=== PATIENT | female | born 1970 | race Caucasian/White ===

== ENCOUNTER 2018-07-05 11:52 | Emergency (ER) | payer MEDICARE ==
[2018-07-05] MEDS ORDERED: Sodium Chloride 0.9% 10 ML Syringe FLUSH PRN (12:09)
[2018-07-05] MEDS ORDERED: diphenhydrAMINE 50 MG/ML SDV IVPUSH ONE (12:10)
[2018-07-05] MEDS ORDERED: methylPREDNISolone Sodium Succinate 125 MG/2 ML SDV IVPUSH ONE (12:10)
[2018-07-05] MEDS ORDERED: Famotidine 20 MG/2 ML SDV IVPUSH ONE (12:10)
--- NOTE | 2018-07-05 15:18 | EDM.PDOC ---
ED HPI GENERAL MEDICAL PROBLEM - General Chief Complaint: Allergic Reaction Stated Complaint: THROAT/FACIAL SWELLING Time Seen by Provider: 07/05/18 12:09 Source of Information: Reports: Patient, Family History Limitations: Reports: No Limitations - History of Present Illness INITIAL COMMENTS - FREE TEXT/NARRATIVE: The patient presents with itching in her throat and around her neck. She also has swelling of her face and neck. She keeps clearing her throat when I examined her. This has been an ongoing problem for about 2 years. She has been to multiple doctors and recently in March a step down nurse. He ran many tests and she was allergic to ragweed and things like that but she also had antibodies to her thyroid cells. Her TSH and thyroxine have been okay. She is to see 1 more doctor and if they cannot figure it out then she will go to [facility]. She was on zyrtec daily and that has been increased to 2 times per day. She does not know what the trigger may have been today. She did not eat anything different and has not been around anything that may have triggered it. It is harvest season and there is lots of dust and [place]. This may contribute. I am not sure. She feels a little short of breath. She has no rash other then some scratches to her neck. Onset: Gradual Duration: Hour(s): Location: Reports: Face, Neck Quality: Reports: Other (Itching) Severity: Moderate Improves with: Reports: None Worsens with: Reports: None Associated Symptoms: Reports: Shortness of Breath. Denies: Cough, Fever/Chills , Headaches, Nausea/Vomiting - Related Data Allergies Allergy/AdvReac Type Severity Reaction Status Date / Time doxycycline Allergy Itching Verified 07/05/18 12:25 Home Meds: Home Meds ALPRAZolam [Alprazolam] 0.25 mg PO DAILY 07/05/18 [History] Lisinopril/Hydrochlorothiazide [Lisinopril-HCTZ 10-12.5 MG] 1 tab PO DAILY 07/05 [History] Sertraline [Zoloft] 100 mg PO 1500 07/05/18 [History] Zolpidem Tartrate [Ambien] 5 mg PO BEDTIME PRN 07/05/18 [History] predniSONE [Prednisone] 40 mg PO DAILY #10 tablet 07/05/18 [Rx] valACYclovir [Valtrex] 500 mg PO DAILY 07/05/18 [History] Past Medical History Gastrointestinal History: Reports: Other (See Below) - Past Surgical History HEENT Surgical History: Reports: Tonsillectomy Cardiovascular Surgical History: Reports: Other (See Below) Other Cardiovascular Surgeries/Procedures: [id number] GI Surgical History: Reports: Hernia, Inguinal Other GI Surgeries/Procedures: colonoscopy; upper gi scope Female Surgical History: Reports: Hysterectomy Musculoskeletal Surgical History: Reports: Other (See Below) Other Musculoskeletal Surgeries/Procedures:: knee surgery-meniscesectomy Social & Family History - Tobacco Use Smoking Status *Q: Never Smoker - Caffeine Use Caffeine Use: Reports: None - Recreational Drug Use Recreational Drug Use: No ED ROS ALLERGIC REACTION - Review of Systems Review Of Systems: See Below Constitutional: Reports: No Symptoms HEENT: Reports: Other (Itching in the throat and neck) Respiratory: Reports: Shortness of Breath Cardiovascular: Reports: No Symptoms Endocrine: Reports: No Symptoms GI/Abdominal: Reports: No Symptoms : Reports: No Symptoms Musculoskeletal: Reports: No Symptoms ED EXAM GENERAL NO PERIP PULSE - Physical Exam Exam: See Below Exam Limited By: No Limitations General Appearance: Alert, No Apparent Distress Ears: Normal External Exam Nose: Normal Inspection Throat/Mouth: Other (Very mild edema to the uvula) Head: Atraumatic, Normocephalic, Facial Swelling (Mild edema above the eyes and to the cheeks) Neck: Normal Inspection Respiratory/Chest: No Respiratory Distress, Lungs Clear, Normal Breath Sounds Cardiovascular: Regular Rate, Rhythm, No Edema, No Murmur GI/Abdominal: Soft, Non-Tender, No Organomegaly, No Mass Back Exam: Normal Inspection Extremities: Normal Inspection Course - Vital Signs Last Recorded V/S: Last Vital Signs Temp 98.0 F 07/05/18 12:00 Pulse 79 07/05/18 12:00 Resp 18 07/05/18 12:00 BP 133/89 07/05/18 12:00 Pulse Ox 99 07/05/18 12:00 - Orders/Labs/Meds Orders: Active Orders 24 hr Category Date Time Status Peripheral IV Care [RC] . DIRECTED Care 07/05/18 12:09 Active Thyroid or Neck (non vasc) [Head Neck Soft Tissue Bi] [ Exams 07/05/18 13:12 Taken US] Stat Sodium Chloride 0.9% [Saline Flush] Med 07/05/18 12:09 Active 10 ml FLUSH ASDIRECTED PRN Peripheral IV Insertion Adult [OM.PC] Routine Oth 07/05/18 12:09 Ordered Medication Orders Sodium Chloride (Saline Flush) 10 ml FLUSH ASDIRECTED PRN PRN Reason: Keep Vein Open Last Admin: 07/05/18 13:09 Dose: 10 ml Meds: Medications Generic Name Dose Route Start Last Admin Trade Name Freq PRN Reason Stop Dose Admin Sodium Chloride 10 ml 07/05/18 12:09 07/05/18 13:09 Saline Flush FLUSH 10 ml ASDIRECTED PRN Administration Keep Vein Open Discontinued Medications Generic Name Dose Route Start Last Admin Trade Name Freq PRN Reason Stop Dose Admin Diphenhydramine HCl 50 mg 07/05/18 12:10 07/05/18 13:04 Benadryl IVPUSH 07/05/18 12:11 50 mg ONETIME ONE Administration Famotidine 20 mg 07/05/18 12:10 07/05/18 13:01 Pepcid IVPUSH 07/05/18 12:11 20 mg ONETIME ONE Administration Methylprednisolone Sodium Succinate 125 mg 07/05/18 12:10 07/05/18 13:06 Solu-Medrol IVPUSH 07/05/18 12:11 125 mg ONETIME ONE Administration - Re-Assessments/Exams Free Text/Narrative Re-Assessment/Exam: 07/05/18 15:22 I ordered an IV saline lock, solu-medrol 125mg IV, pepcid 20mg IV, benadryl 50mg IV and an US of her thyroid. The US shows no enlarged or calcified nodules. She feels better. I will discharge her home on some prednisone, pepcid and she should continue the zyrtec. Departure - Departure Time of Disposition: 15:25 Disposition: Home, Self-Care 01 Condition: Good Clinical Impression: Chronic pruritus Allergic reaction Qualifiers: Encounter type: initial encounter Qualified Code(s): T78.40XA - Allergy, unspecified, initial encounter - Discharge Information *PRESCRIPTION DRUG MONITORING PROGRAM REVIEWED*: Not Applicable *COPY OF PRESCRIPTION DRUG MONITORING REPORT IN PATIENT THAD: Not Applicable Prescriptions: predniSONE [Prednisone] 40 mg PO DAILY #10 tablet Referrals: Arden Irizarry MD [Primary Care Provider] - 1 Week Additional Instructions: Keep taking the zyrtec 2 times per day. Take prednisone 40mg daily. Take the pepcid 1 tab daily for 7days. Please return if you are worse. - My Orders Last 24 Hours: My Active Orders 07/05/18 12:09 Peripheral IV Care [RC] . DIRECTED Sodium Chloride 0.9% [Saline Flush] 10 ml FLUSH ASDIRECTED PRN Peripheral IV Insertion Adult [OM.PC] Routine 07/05/18 13:12 Thyroid or Neck (non vasc) [Head Neck Soft Tissue Bi] [US] Stat - Assessment/Plan Last 24 Hours: My Active Orders 07/05/18 12:09 Peripheral IV Care [RC] . DIRECTED Sodium Chloride 0.9% [Saline Flush] 10 ml FLUSH ASDIRECTED PRN Peripheral IV Insertion Adult [OM.PC] Routine 07/05/18 13:12 Thyroid or Neck (non vasc) [Head Neck Soft Tissue Bi] [US] Stat
== END 2018-07-05 15:30 | disposition home or self-care (01) ==
LOC: JD.ED 11:52
DX: J30.1 Allergic rhinitis due to pollen (principal); L29.9 Pruritus, unspecified
CPT/HCPCS: 76536; 96374; 96375; 99285; J1200; J2930; J3490; J7050; 99284